=== PATIENT | female | born 1995 | race American Indian/Alaskan Native ===

== ENCOUNTER 2017-06-13 07:46 | Outpatient (CLI) | payer BC ==
--- NOTE | 2017-06-13 13:40 | Fluoroscopy Report ---
FLUORO GUIDED HSG INDICATION: Infertility. COMPARISON: None similar at this institution. FINDINGS: Hysterosalpingogram performed with cervix cannulated using standard sterile precautions. Preliminary radiograph demonstrates no significant abnormality. Injection of 14 cc of Omnipaque-300 under fluoroscopy demonstrates normal uterine cavity/contours. Prompt opacification of normal caliber fallopian tubes with free intraperitoneal spill noted bilaterally. CONCLUSION: Normal exam with patent bilateral fallopian tubes, as described. Thank you for the opportunity to participate in this patient's care.
== END 2017-06-13 07:47 | disposition home or self-care (01) ==
LOC: FLUORO 07:46
PROVIDERS: ATTEND Obstetrics & Gynecology
DX: N97.9 Female infertility, unspecified (principal)
CPT/HCPCS: 58340; 74740; Q9967

== ENCOUNTER 2017-09-08 22:59 | Emergency (ER) | payer BC | END 2017-09-08 23:30 | disposition left against medical advice (07) | LOC: ED 22:59 | DX: R10.9 Unspecified abdominal pain (principal); Z53.21 Procedure and treatment not carried out due to patient leaving prior to being seen by health care provider ==